=== PATIENT | female | born 1980 | race Caucasian/White ===

== ENCOUNTER 2016-05-07 20:58 | Emergency (ER) | payer SELFPAY ==
[2016-05-07] MEDS ORDERED: HYDROcodone/Acetaminophen 10/325 mg Tablet ONE (21:29)
[2016-05-07] MEDS ORDERED: Diazepam 5 MG TAB ONE (21:29)
[2016-05-07] MEDS ORDERED: Dexamethasone 4 MG TAB ONE (21:30)
[2016-05-07] MEDS ORDERED: Gabapentin 100 MG CAP ONE (21:30)
--- NOTE | 2016-05-07 21:47 | ERRECORD ---
[facility] EMERGENCY RECORD HPI BACK (21:31 ABUS) CHIEF COMPLAINT: Patient presents for evaluation of pain, to the left upper back. HISTORIAN: History provided by patient, 36 yr old Fhere with left shoulder pain in the context of doing extra physical labor. She has had a known "pinched nerve" and now its worsened. Describes the pain as coming from the left cervical spine area and down to the shoulder and shoulder blade. Has motor movement. denies any F/N/V, numbness. MECHANISM OF INJURY: Mechanism of injury:, Physical labor, No alcohol use associated with this incident, No drug use associated with this incident, No domestic violence associated with this incident, Work related. LOCATION: Symptoms are localized to the back, to cervical spine. QUALITY: Pain is dull in nature, described as aching. SEVERITY: Currently symptoms are moderate. TIME COURSE: Sudden onset of symptoms, First recent visit for this complaint, There has been no change in the patient's symptoms over time. ASSOCIATED WITH: No associated abdominal pain, No associated bladder incontinence, No associated bowel incontinence, No associated dysuria, No associated fever, Associated with radiation of pain, No associated sciatica. EXACERBATED BY: Patient's condition exacerbated by movement. RELIEVED BY: Patient's condition relieved by nothing. ROS (21:34 ABUS) CONSTITUTIONAL: Negative constitutional review of systems, Historian denies chills, denies fever. CARDIOVASCULAR: Negative cardiovascular review of systems, Historian denies chest pain, denies palpitations. RESPIRATORY: Negative respiratory review of systems, Historian denies cough, denies shortness of breath. GI: Negative gastrointestinal review of systems, Historian denies abdominal pain, denies constipation, denies diarrhea, denies nausea, denies vomiting. GENITOURINARY FEMALE: Negative genitourinary review of systems, Historian denies dysuria, denies frequency. MUSCULOSKELETAL: Historian reports back pain, denies deformity, denies fall, denies injury, reports myalgias, reports spasms. SKIN: Negative skin review of systems, Historian denies rash, denies skin changes. NEUROLOGIC: Negative neurologic review of systems, Historian denies headache. HEMO/LYMPHATIC: Normal hematologic/lymphatic system review, Historian denies abnormal blood clotting. PAST MEDICAL HISTORY (21:11 LPOL) MEDICAL HISTORY: Past medical history includes history of &a-1R&a+25V*p+0X*b1485U*c202B*c15G*c2P*p-0X&a-25V&a+1R Name: Marisa Link : 1980 F36 MedRec: [id number] AcctNum: [id number] Prepared: Adelina May 07, 2016 22:14 by Interface Page 1 of 4 pMD [facility] EMERGENCY RECORD hypertension, Flu vaccine not up to date, Tetanus immunization up to date, Pneumococcal vaccine not up to date, No past medical history, Flu vaccine not up to date,. FEMALE SURGICAL HISTORY: , Right leg surgery s/p fx 2012. PSYCHIATRIC HISTORY: No previous psychiatric history. SOCIAL HISTORY: Patient drinks socially, rarely, Patient denies drug use, Patient currently uses tobacco, smokes cigarettes, Lives at home, with family, Patient is a former drug user, abused marijuana, , Patient has smoked for 20 years, Patient smokes 1 pack per day, Lives at home, with family, Patient has pets. KNOWN ALLERGIES ALLERGIES: (Unconfirmed) FOOD ALLERGIES: (Unconfirmed) LATEX ALLERGY? (Unconfirmed) NKDA No Known Allergies (Unconfirmed) CURRENT MEDICATIONS No recorded medications VITAL SIGNS VITAL SIGNS: BP: 132/97, Pulse: 102, Resp: 18, Temp: 97.2 (Tympanic), O2 sat: 97 on Room Air, Time: 05/07/2016 21:07. (21:07 LPOL) Pulse: 88, Resp: 17, O2 sat: 100 on Room Air, Time: 05/07/2016 21:12. (21:12 LPOL) BP: 141/93, Pulse: 87, Resp: 20, O2 sat: 96 on ra, Time: 05/07/2016 22:02. (22:02 LPOL) PHYSICAL EXAM (21:34 ABUS) CONSTITUTIONAL: Vital Signs Reviewed, Patient afebrile, Pulse normal, Blood pressure normal, Patient appears non toxic, Patient appears, in severe pain distress, Patient alert and oriented to person, place and time. HEAD: Head exam normal. NECK: Neck exam normal, Neck exam included findings of normal range of motion, Trachea midline, no meningeal signs, no cervical adenopathy, no tenderness. RESPIRATORY CHEST: Respiratory and chest exam normal, Respiratory exam included findings of no respiratory distress, Breath sounds clear. CARDIOVASCULAR: Cardiovascular assessment normal, Cardiovascular exam included findings of heart rate regular rate and rhythm, Heart sounds normal. ABDOMEN FEMALE: Abdominal exam included findings of abdomen nontender, Bowel sounds normal, no distension, no mass, no pulsatile masses, no peritoneal signs, no rigidity, no guarding, no rebound, Rovsing's sign absent. &a-1R&a+25V*p+0X*n1507I*c202B*c15G*c2P*p-0X&a-25V&a+1R Name: Marisa Link : 1980 F36 MedRec: [id number] AcctNum: [id number] Prepared: Adelina May 07, 2016 22:14 by Interface Page 2 of 4 pMD [facility] EMERGENCY RECORD BACK: Back exam normal, Back exam included findings of normal inspection, range of motion normal, no tenderness. NEURO: Neuro exam normal, Neuro exam findings include patient oriented to person, place and time, Speech normal, Gait normal. SKIN: Skin exam normal, Skin exam included findings of skin warm, dry, and normal in color, no rash. MEDICATION ADMINISTRATION SUMMARY Drug Name: dexamethasone, Dose Ordered: 4 mg, Route: Oral, Status: Given, Time: 21:33 05/07/2016, Drug Name: HYDROcodone-acetaminophen, Dose Ordered: 10/325 tab(s), Route: Oral, Status: Given, Time: 21:33 05/07/2016, Drug Name: diazepam oral, Dose Ordered: 5 mg, Route: Oral, Status: Given, Time: 21:33 05/07/2016, Drug Name: gabapentin, Dose Ordered: 100 mg, Route: Oral, Status: Given, Time: 21:32 05/07/2016, Detailed record available in Medication Service section. DOCTOR NOTES (21:35 ABUS) TEXT: 36 yr old Fhere with left shoulder pain in the context of doing extra physical labor. She has had a known "pinched nerve" and now its worsened. Exam: left upper shoulder pain, no deformity, no redness, no fever, no motor or sensory deficits. DDX: Muscle strain, Muscle Spasm, Ligamentous Injury, Contusion, Soft Tissue Injury, Arthritis, Degenerative Joint Disease, Spinal Stenosis, Disk Herniation PLAN: Analgesics, Muscle Relaxants. Final Dispo: Home with follow up and return precautions. Level of Complexity / Medical Decision Making: Low. PROBLEM LIST No recorded problems DIAGNOSIS (21:29 ABUS) FINAL: PRIMARY: RADICULOPATHY CERVICAL REGION, ADDITIONAL: OTHER MUSCLE SPASM. PRESCRIPTION (21:28 ABUS) Flexeril: TABLET : 10 mg : ORAL : Quantity: 10 Unit: mg Route: ORAL Schedule: every 8 hours PRN Dispense: 6 Unit: tab(s) May substitute. Refills: No Refills . NOTES: No Refills. acetaminophen-codeine: TABLET : 300 mg-30 mg : ORAL : Quantity: 1 Unit: tab(s) Route: ORAL Schedule: every 6 hours PRN Dispense: 6 Unit: tab(s) May substitute. Refills: No Refills . NOTES: ^s=No Refills &a-1R&a+25V*p+0X*f9723I*c202B*c15G*c2P*p-0X&a-25V&a+1R Name: Marisa Link : 1980 F36 MedRec: [id number] AcctNum: [id number] Prepared: FriMay 07, 2016 22:14 by Interface Page 3 of 4 pMD [facility] EMERGENCY RECORD No Refills. DISPOSITION PATIENT: Disposition Type: Discharge, Disposition: *Discharge Home, Condition: Good. (21:29 ABUS) Patient left the department. (22:05 LPOL) Mancini: ABUS=MD Laurence, Jhonathan LPOL=LAINA Denney, Luna &a-1R&a+25V*p+0X*t9534V*c202B*c15G*c2P*p-0X&a-25V&a+1R Name: Marisa Link : 1980 F36 MedRec: [id number] AcctNum: [id number] Prepared: FriMay 07, 2016 22:14 by Interface Page 4 of 4 pMD [facility]
--- NOTE | 2016-05-07 21:53 | PICIS ---
[facility] EMERGENCY RECORD TRIAGE (21:09 LPOL) TRIAGE NOTES: Chest pain, left back pain x 1.5 hrs. (21:09 LPOL) PATIENT: NAME: Marisa Link, AGE: 36, GENDER: female, : Fri1980, TIME OF GREET: FriMay 07, 2016 20:59, PREFERRED LANGUAGE: Frisian, ETHNICITY: Not or , FALL RISK: NO, ECODE BILLING MAP: [facility], SSN: [id number], Zip Code: [address], PHONE: , , , PERSON ID: [id number], PCP: Ave RODRIGEZ KERRY. (21:09 LPOL) KG WEIGHT: 90.7 (est.). (21:11 LPOL) COMPLAINT: NECK, CHEST, AND BACK PAIN. (21:09 LPOL) ADMISSION: URGENCY: 4 Non Urgent, ADMISSION SOURCE: Home, TRANSPORT: Walk-in, BED: TRIAGE. (21:09 LPOL) SIRS SCORING: Heart Rate 55-109 (0), Temp range 96.8-101.1 (0), respiratory rate 12-24 (0), Mental Status altered: no (0). (21:11 LPOL) TRIAGE SCREENING: Patient denies suicidal ideation, Patient denies presence of domestic violence. (21:11 LPOL) TREATMENTS IN PROGRESS: Treatments given Prehospital: None. (21:11 LPOL) PROVIDERS: TRIAGE NURSE: Luna Denney RN. (21:09 LPOL) VITAL SIGNS: BP 132/97, Pulse 102, Resp 18, Temp 97.2, (Tympanic), O2 Sat 97, on Room Air, Time 05/07/2016 21:07. (21:07 LPOL) PREVIOUS VISIT ALLERGIES: NKDA. (21:09 LPOL) NKDA. (21:11 LPOL) KNOWN ALLERGIES ALLERGIES: (Unconfirmed) FOOD ALLERGIES: (Unconfirmed) LATEX ALLERGY? (Unconfirmed) NKDA No Known Allergies (Unconfirmed) CURRENT MEDICATIONS No recorded medications VITAL SIGNS VITAL SIGNS: BP: 132/97, Pulse: 102, Resp: 18, Temp: 97.2 (Tympanic), O2 sat: 97 on Room Air, Time: 05/07/2016 21:07. (21:07 LPOL) Pulse: 88, Resp: 17, O2 sat: 100 on Room Air, Time: 05/07/2016 21:12. (21:12 LPOL) BP: 141/93, Pulse: 87, Resp: 20, O2 sat: 96 on ra, Time: 05/07/2016 22:02. (22:02 LPOL) NURSING ASSESSMENT: HEAD-TO-TOE (21:11 LPOL) CONSTITUTIONAL: Gait steady, History obtained from patient, Patient appears, uncomfortable, Patient alert, Oriented to person, place and time, Skin warm, Skin dry, Skin normal in color, &a-1R&a+25V*p+0X*v6813V*c202B*c15G*c2P*p-0X&a-25V&a+1R Name: Marisa Link : 1980 F36 MedRec: [id number] AcctNum: [id number] Prepared: Adelina May 07, 2016 22:14 by Interface Page 1 of 7 pMD [facility] EMERGENCY RECORD Mucous membranes pink, Mucous membranes moist, Patient is well-groomed. PAIN: chest, neck, upper back. NEURO: GCS:, Eye opening: (4) - Spontaneous, Verbal: (5) - Oriented/conversive, Motor: (6) - Obeys commands/Spontaneous, GCS Total: 15. RESPIRATORY/CHEST: Breath sounds clear, Respiratory assessment findings include respiratory effort easy, Respirations regular, Conversing normally, Neck and chest exam findings include trachea midline, Chest expansion equal, Chest movement symmetrical. CARDIOVASCULAR: Cardiovascular assessment findings include heart rate normal, Heart rhythm normal sinus. NURSING PROCEDURE: DISCHARGE NOTE (22:02 LPOL) DISCHARGE: Patient discharged to home, ambulating without assistance, friend driving, accompanied by //partner, Summary of Care printed/ provided, Patient requested and was provided an electronic copy of Discharge Instructions, Transition record given to patient, Discharge instructions given to patient, Simple or moderate discharge teaching performed, by grace, Prescriptions given and instructions on side effects given, Name of prescription(s) given: tylenol#3, flexeril, Medication reconciliation form given, Above person(s) verbalized understanding of discharge instructions and follow-up care, Patient treated and evaluated by physician. BELONGINGS: Belongings and valuables with patient upon arrival to the Emergency Department include:, Belongings remain with patient, Valuables remain with patient. VITAL SIGNS: BP: 141, / 93, Pulse: 87, Resp: 20, O2 sat: 96, on: ra. NURSING PROCEDURE: EKG CHART (21:37 LPOL) PATIENT IDENTIFIER: Patient's identity verified by patient stating name, Patient's identity verified by patient stating date, Patient's identity verified by family member. EKG: EKG indicated for complaint of chest pain, 12 lead EKG performed on the left chest, done by Julia MARINA, first EKG. FOLLOW-UP: After procedure, EKG for interpretation given to Dr. Dang. SAFETY: Side rails up. ORDER DETAILS Order Name: EKG 12 Lead in Emergency Room, Status: Active, Time: 22:04 05/07/2016, User: LP, - Ordered for: MD Laurence, Jhonathan, - Entered by: LAINA Denney Loretta - Adelina May 07, 2016 22:04, - Quantity: 1. MEDICATION ADMINISTRATION SUMMARY &a-1R&a+25V*p+0X*e9762D*c202B*c15G*c2P*p-0X&a-25V&a+1R Name: Marisa Link : 1980 F36 MedRec: [id number] AcctNum: [id number] Prepared: Adelina May 07, 2016 22:14 by Interface Page 2 of 7 pMD [facility] EMERGENCY RECORD Drug Name: dexamethasone, Dose Ordered: 4 mg, Route: Oral, Status: Given, Time: 21:33 05/07/2016, Drug Name: HYDROcodone-acetaminophen, Dose Ordered: 10/325 tab(s), Route: Oral, Status: Given, Time: 21:33 05/07/2016, Drug Name: diazepam oral, Dose Ordered: 5 mg, Route: Oral, Status: Given, Time: 21:33 05/07/2016, Drug Name: gabapentin, Dose Ordered: 100 mg, Route: Oral, Status: Given, Time: 21:32 05/07/2016, Detailed record available in Medication Service section. MEDICATION SERVICE dexamethasone: Order: dexamethasone - Dose: 4 mg : Oral Schedule: Now Ordered by: Jhonathan Dang MD Entered by: Jhonathan Dang MD FriMay 07, 2016 21:25 , Acknowledged by: Luna Denney RN FriMay 07, 2016 21:26 Documented as given by: Luna Denney RN FriMay 07, 2016 21:33 Patient, Medication, Dose, Route and Time verified prior to administration. Amount given: 4 mg, Site: Medication administered P.O., Patient appears Awake and alert- acceptable, Correct patient, time, route, dose and medication confirmed prior to administration, Patient advised of actions and side-effects prior to administration, Allergies confirmed and medications reviewed prior to administration. : Follow Up : Response assessment performed, No signs or symptoms of allergic reaction noted, Decreased pain. (22:01 LPOL) diazepam oral: Order: diazepam oral (diazepam) - Dose: 5 mg : Oral Schedule: Now Ordered by: Jhonathan aDng MD Entered by: Jhonathan Dang MD FriMay 07, 2016 21:26 , Acknowledged by: Luna Denney RN FriMay 07, 2016 21:27 Documented as given by: Luna Denney RN FriMay 07, 2016 21:33 Patient, Medication, Dose, Route and Time verified prior to administration. Amount given: 5 mg, Site: Medication administered P.O., Patient appears Awake and alert- acceptable, Correct patient, time, route, dose and medication confirmed prior to administration, Patient advised of actions and side-effects prior to administration, Allergies confirmed and medications reviewed prior to administration. : Follow Up : Response assessment performed, No signs or symptoms of allergic reaction noted, Decreased pain. (22:02 LPOL) gabapentin: Order: gabapentin - Dose: 100 mg : Oral Schedule: Now Ordered by: Jhonathan Dang MD Entered by: Jhonathan Dang MD FriMay 07, 2016 21:27 , Acknowledged by: Luna Denney RN FriMay 07, 2016 21:28 &a-1R&a+25V*p+0X*w5110R*c202B*c15G*c2P*p-0X&a-25V&a+1R Name: Marisa Link : 1980 F36 MedRec: [id number] AcctNum: [id number] Prepared: FriMay 07, 2016 22:14 by Interface Page 3 of 7 pMD [facility] EMERGENCY RECORD Documented as given by: Luna Denney RN May 07, 2016 21:32 Patient, Medication, Dose, Route and Time verified prior to administration. Amount given: 100 mg, Site: Medication administered P.O., Patient appears Awake and alert- acceptable, Correct patient, time, route, dose and medication confirmed prior to administration, Patient advised of actions and side-effects prior to administration, Allergies confirmed and medications reviewed prior to administration. : Follow Up : Response assessment performed, No signs or symptoms of allergic reaction noted, Decreased pain. (22:02 LPOL) HYDROcodone-acetaminophen: Order: HYDROcodone-acetaminophen (hydrocodone bitartrate/acetaminophen) - Dose: 10/325 tab(s) : Oral Schedule: Now Ordered by: Jhonathan Dang MD Entered by: Jhonathan Dang MD michael May 07, 2016 21:26 , Acknowledged by: Luna Denney RN May 07, 2016 21:26 Documented as given by: Luna Denney RN May 07, 2016 21:33 Patient, Medication, Dose, Route and Time verified prior to administration. Amount given: 1 tab, Site: Medication administered P.O., Patient appears Awake and alert- acceptable, Correct patient, time, route, dose and medication confirmed prior to administration, Patient advised of actions and side-effects prior to administration, Allergies confirmed and medications reviewed prior to administration. : Follow Up : Response assessment performed, No signs or symptoms of allergic reaction noted, Decreased pain. (22:02 LPOL) HPI BACK (21:31 ABUS) CHIEF COMPLAINT: Patient presents for evaluation of pain, to the left upper back. HISTORIAN: History provided by patient, 36 yr old Fhere with left shoulder pain in the context of doing extra physical labor. She has had a known "pinched nerve" and now its worsened. Describes the pain as coming from the left cervical spine area and down to the shoulder and shoulder blade. Has motor movement. denies any F/N/V, numbness. MECHANISM OF INJURY: Mechanism of injury:, Physical labor, No alcohol use associated with this incident, No drug use associated with this incident, No domestic violence associated with this incident, Work related. LOCATION: Symptoms are localized to the back, to cervical spine. QUALITY: Pain is dull in nature, described as aching. SEVERITY: Currently symptoms are moderate. TIME COURSE: Sudden onset of symptoms, First recent visit for this complaint, There has been no change in the patient's symptoms over time. ASSOCIATED WITH: No associated abdominal pain, No associated bladder incontinence, No associated bowel &a-1R&a+25V*p+0X*r2786A*c202B*c15G*c2P*p-0X&a-25V&a+1R Name: Marisa Link : 1980 F36 MedRec: [id number] AcctNum: [id number] Prepared: Adelina May 07, 2016 22:14 by Interface Page 4 of 7 pMD [facility] EMERGENCY RECORD incontinence, No associated dysuria, No associated fever, Associated with radiation of pain, No associated sciatica. EXACERBATED BY: Patient's condition exacerbated by movement. RELIEVED BY: Patient's condition relieved by nothing. ROS (21:34 ABUS) CONSTITUTIONAL: Negative constitutional review of systems, Historian denies chills, denies fever. CARDIOVASCULAR: Negative cardiovascular review of systems, Historian denies chest pain, denies palpitations. RESPIRATORY: Negative respiratory review of systems, Historian denies cough, denies shortness of breath. GI: Negative gastrointestinal review of systems, Historian denies abdominal pain, denies constipation, denies diarrhea, denies nausea, denies vomiting. GENITOURINARY FEMALE: Negative genitourinary review of systems, Historian denies dysuria, denies frequency. MUSCULOSKELETAL: Historian reports back pain, denies deformity, denies fall, denies injury, reports myalgias, reports spasms. SKIN: Negative skin review of systems, Historian denies rash, denies skin changes. NEUROLOGIC: Negative neurologic review of systems, Historian denies headache. HEMO/LYMPHATIC: Normal hematologic/lymphatic system review, Historian denies abnormal blood clotting. PAST MEDICAL HISTORY (21:11 LPOL) MEDICAL HISTORY: Past medical history includes history of hypertension, Flu vaccine not up to date, Tetanus immunization up to date, Pneumococcal vaccine not up to date, No past medical history, Flu vaccine not up to date,. FEMALE SURGICAL HISTORY: , Right leg surgery s/p fx 2012. PSYCHIATRIC HISTORY: No previous psychiatric history. SOCIAL HISTORY: Patient drinks socially, rarely, Patient denies drug use, Patient currently uses tobacco, smokes cigarettes, Lives at home, with family, Patient is a former drug user, abused marijuana, , Patient has smoked for 20 years, Patient smokes 1 pack per day, Lives at home, with family, Patient has pets. PHYSICAL EXAM (21:34 ABUS) CONSTITUTIONAL: Vital Signs Reviewed, Patient afebrile, Pulse normal, Blood pressure normal, Patient appears non toxic, Patient appears, in severe pain distress, Patient alert and oriented to person, place and time. HEAD: Head exam normal. NECK: Neck exam normal, Neck exam included findings of normal range of motion, Trachea midline, no meningeal signs, no cervical &a-1R&a+25V*p+0X*f2979B*c202B*c15G*c2P*p-0X&a-25V&a+1R Name: Marisa Link : 1980 F36 MedRec: [id number] AcctNum: [id number] Prepared: FriMay 07, 2016 22:14 by Interface Page 5 of 7 pMD [facility] EMERGENCY RECORD adenopathy, no tenderness. RESPIRATORY CHEST: Respiratory and chest exam normal, Respiratory exam included findings of no respiratory distress, Breath sounds clear. CARDIOVASCULAR: Cardiovascular assessment normal, Cardiovascular exam included findings of heart rate regular rate and rhythm, Heart sounds normal. ABDOMEN FEMALE: Abdominal exam included findings of abdomen nontender, Bowel sounds normal, no distension, no mass, no pulsatile masses, no peritoneal signs, no rigidity, no guarding, no rebound, Rovsing's sign absent. BACK: Back exam normal, Back exam included findings of normal inspection, range of motion normal, no tenderness. NEURO: Neuro exam normal, Neuro exam findings include patient oriented to person, place and time, Speech normal, Gait normal. SKIN: Skin exam normal, Skin exam included findings of skin warm, dry, and normal in color, no rash. EVENTS TRANSFER: Triage to Emergency Triage. (FriMay 07, 2016 21:09 LPOL) Emergency Triage to Main ED -01. (21:09 LPOL) Removed from Emergency Main ED -01. (22:05 LPOL) DOCTOR NOTES (21:35 ABUS) TEXT: 36 yr old Fhere with left shoulder pain in the context of doing extra physical labor. She has had a known "pinched nerve" and now its worsened. Exam: left upper shoulder pain, no deformity, no redness, no fever, no motor or sensory deficits. DDX: Muscle strain, Muscle Spasm, Ligamentous Injury, Contusion, Soft Tissue Injury, Arthritis, Degenerative Joint Disease, Spinal Stenosis, Disk Herniation PLAN: Analgesics, Muscle Relaxants. Final Dispo: Home with follow up and return precautions. Level of Complexity / Medical Decision Making: Low. PROBLEM LIST No recorded problems DIAGNOSIS (21:29 ABUS) FINAL: PRIMARY: RADICULOPATHY CERVICAL REGION, ADDITIONAL: OTHER MUSCLE SPASM. DISPOSITION PATIENT: Disposition Type: Discharge, Disposition: *Discharge Home, Condition: Good. (21:29 ABUS) Patient left the department. (22:05 LPOL) INSTRUCTION (21:30 ABUS) &a-1R&a+25V*p+0X*w7172E*c202B*c15G*c2P*p-0X&a-25V&a+1R Name: Marisa Link : 1980 F36 MedRec: [id number] AcctNum: [id number] Prepared: Adelina May 07, 2016 22:14 by Interface Page 6 of 7 pMD [facility] EMERGENCY RECORD DISCHARGE: RADICULOPATHY, CERVICAL, MUSCLE STRAIN CERVICAL. FOLLOWUP: Ave RODRIGEZ, JACINTA, Obstetrics and Gynecology, [address] [place] [id number], [phone], Follow up with Primary Care Physician in 1-2 days. SPECIAL: Please keep any upcoming appointments with your primary doctor or call the referral provided to you today to establish a follow up evaluation or ongoing medical care. Please come back if you start to have fever, vomiting, numbness, motor weakness, or any symptoms that concern you. PRESCRIPTION (21:28 ABUS) Flexeril: TABLET : 10 mg : ORAL : Quantity: 10 Unit: mg Route: ORAL Schedule: every 8 hours PRN Dispense: 6 Unit: tab(s) May substitute. Refills: No Refills . NOTES: No Refills. acetaminophen-codeine: TABLET : 300 mg-30 mg : ORAL : Quantity: 1 Unit: tab(s) Route: ORAL Schedule: every 6 hours PRN Dispense: 6 Unit: tab(s) May substitute. Refills: No Refills . NOTES: ^s=No Refills No Refills. IMAGING *EKG: Image captured from scanner. (21:36 LPOL) *DISCHARGE INSTRUCTIONS RECEIPT: Image captured from scanner. (22:04 LPOL) Page 2 added. Image captured from scanner. (22:06 LPOL) *SUPPLY CHARGE SHEET: Image captured from scanner. (22:06 LPOL) ADMIN (21:37 ABUS) DIGITAL SIGNATURE: MD Dang Anthony. Mancini: ABUS=MD Dang Anthony LPOL=LAINA Denney, Luna &a-1R&a+25V*p+0X*g4981N*c202B*c15G*c2P*p-0X&a-25V&a+1R Name: Marisa Link : 1980 F36 MedRec: [id number] AcctNum: [id number] Prepared: Adelina May 07, 2016 22:14 by Interface Page 7 of 7 pMD [facility]
== END 2016-05-07 22:00 | disposition home or self-care (01) ==
LOC: MADERS 20:58
DX: M54.12 Radiculopathy, cervical region (principal); M62.838 Other muscle spasm; I10 Essential (primary) hypertension; F17.210 Nicotine dependence, cigarettes, uncomplicated
CPT/HCPCS: 93005; J8540

== ENCOUNTER 2018-07-31 22:16 | Emergency (ER) | payer SELFPAY | END 2018-07-31 23:44 | disposition home or self-care (01) | LOC: MADERS 22:16 | DX: H66.92 Otitis media, unspecified, left ear (principal); I10 Essential (primary) hypertension; F17.210 Nicotine dependence, cigarettes, uncomplicated | CPT/HCPCS: 99283 ==

== ENCOUNTER 2019-06-10 11:39 | Emergency (ER) | payer OTHER, SELFPAY ==
[~2019-06-10 11:39] MED LIST: Nitroglycerin 0.4 MG TAB 1 EACH ONE
[2019-06-10] MEDS ORDERED: Nitroglycerin 0.4 MG TAB 1 EACH ONE (11:57)
[2019-06-10] MEDS ORDERED: Aspirin Chewable 81 MG TAB ONE (11:59)
[2019-06-10 12:09] LABS: #Basophils 0.1 thou/uL (0.0-0.2); #Eosinphils 0.1 thou/uL (0.0-0.7); #Lymphocytes 1.9 thou/uL (1.20-3.40); #Monocytes 0.7 thou/uL (0.11-0.59); #Neutrophils 6.8 thou/uL (1.40-6.50); %Basophils 0.9 % (0.0-1.0); %Eosinophils 1.4 % (0.0-10.0); %Lymphocytes 19.9 % (21.0-51.0); %Monocytes 6.9 % (0.0-10.0); %Neutrophils 70.9 % (42.0-75.0); Mean Corpuscular Hemoglobin 30.8 pg (27.0-31.0); Mean Corpuscular Volume 96.2 fL (78.0-98.0); Mean Platelet Volume 10.6 fL (7.4-10.4); Platelet Count 231 thou/uL (130-400); RBC Distribution Width 10.9 % (11.5-14.5); White Blood Cell (WBC) Count 9.6 thou/uL (4.8-10.8)
[2019-06-10 12:22] LABS: ALT (SGPT) 20 U/L (8-55); AST (SGOT) 15 U/L (5-34); Albumin 4.1 g/dL (3.5-5.0); Alkaline Phosphatase 96 U/L (40-110); Anion Gap 16 mmol/L (10-20); BUN (Urea Nitrogen) 7 mg/dL (7.0-18.7); Bilirubin, Total 1.1 mg/dL (0.2-1.2); CK (CPK) 53 U/L (29-168); Calc. Creatinine Clearance 0 mL/min (70-130); Calcium 8.9 mg/dL (7.8-10.44); Carbon Dioxide 21 mmol/L (22-29); Chloride 108 mmol/L (98-107); Estimated GFR-MDRD Greater than 90; Globulin 2.9 g/dL (2.4-3.5); Glucose 110 mg/dL (70-105); Potassium 3.9 mmol/L (3.5-5.1); Sodium 141 mmol/L (136-145)
[2019-06-10 12:23] LABS: CKMB 1.4 ng/mL (0-6.6)
[2019-06-10] MEDS ORDERED: Metoprolol Tartrate 25 MG TAB ONE (13:13)
--- NOTE | 2019-06-10 13:30 | RAD ---
RADIOGRAPH CHEST 1 VIEW: Date: 06/10/2019 Time: 1224 hours HISTORY: 39-year-old female with chest pain. COMPARISON: None available. FINDINGS: Magnification of the cardia shadow. Prominent interstitial markings. No consolidation or pneumothorax . No effacement of lateral costophrenic angles. IMPRESSION: No compelling evidence of acute pulmonary disease. JN [] POS: [facility]
== END 2019-06-10 13:17 | disposition home or self-care (01) ==
LOC: MADERS 11:39
DX: I10 Essential (primary) hypertension (principal); R07.89 Other chest pain; F17.210 Nicotine dependence, cigarettes, uncomplicated
CPT/HCPCS: 71045; 80053; 82550; 82553; 84484; 85025; 85379; 93005

== ENCOUNTER 2019-06-14 10:29 | Emergency (ER) | payer OTHER, SELFPAY ==
[2019-06-14] MEDS ORDERED: Metoprolol Tartrate 50 MG TAB ONE (11:13)
[2019-06-14] MEDS ORDERED: Amlodipine 5 MG TAB ONE (11:13)
[2019-06-14] MEDS ORDERED: Ibuprofen 800 MG TAB ONE (11:20)
== END 2019-06-14 12:55 ==
LOC: MADERS 10:29
DX: I10 Essential (primary) hypertension (principal); R10.30 Lower abdominal pain, unspecified; F17.210 Nicotine dependence, cigarettes, uncomplicated; Z79.82 Long term (current) use of aspirin; Z79.899 Other long term (current) drug therapy
CPT/HCPCS: 99283

== ENCOUNTER 2020-10-29 16:34 | Emergency (ER) | payer OTHER ==
[2020-10-29 18:09] LABS: Hemoglobin 16.3 g/dL (12.0-16.0); Mean Corpuscular HGB CONC 32.2 g/dL (32.0-36.0); Mean Corpuscular Hemoglobin 31.6 pg (27.0-31.0); Mean Corpuscular Volume 98.2 fL (78.0-98.0); Mean Platelet Volume 10.7 fL (7.4-10.4); Platelet Count 262 thou/uL (130-400); RBC Distribution Width 11.1 % (11.5-14.5); Red Blood Cell (RBC) Count 5.15 mill/uL (4.20-5.40); White Blood Cell (WBC) Count 10.4 thou/uL (4.8-10.8)
[2020-10-29 18:19] LABS: ALT (SGPT) 31 U/L (8-55); AST (SGOT) 18 U/L (5-34); Albumin 4.1 g/dL (3.5-5.0); Alkaline Phosphatase 104 U/L (40-110); Anion Gap 15 mmol/L (10-20); BUN (Urea Nitrogen) 9 mg/dL (7.0-18.7); Bilirubin, Total 1.7 mg/dL (0.2-1.2); Calc. Creatinine Clearance 0 mL/min (70-130); Calcium 9.3 mg/dL (7.8-10.44); Carbon Dioxide 25 mmol/L (22-29); Chloride 105 mmol/L (98-107); Globulin 3.3 g/dL (2.4-3.5); Glucose 98 mg/dL (70-105); Potassium 3.5 mmol/L (3.5-5.1); Protein, Total 7.4 g/dL (6.0-8.3); Sodium 141 mmol/L (136-145)
[2020-10-29 18:27] LABS: Band 1 % (5-11); Lymphocytes 26 % (21-51); MDiff Complete? YES; Monocytes 4 % (0-10); Neutrophil 64 % (42-75); Platelet Morphology Comment Appears Adequate; RBC Morphology Normal; Reactive Lymphocytes 4 % (0-10)
[2020-10-29] MEDS ORDERED: HYDROcodone/Acetaminophen 5/325 mg Tablet ONE (18:35)
[2020-10-29] MEDS ORDERED: Metoclopramide HCl 10 MG/2 ML VIAL ONE (18:35)
[2020-10-29] MEDS ORDERED: Sodium Chloride 0.9% 50 ML ONE (18:35)
== END 2020-10-29 19:06 ==
LOC: MADERS 16:34
DX: I10 Essential (primary) hypertension (principal); R51.9 Headache, unspecified
CPT/HCPCS: 70450; 71045; 80053; 84484; 85025; 93005; 96365; J2765

== ENCOUNTER 2020-10-31 14:26 | Emergency (ER) | payer OTHER ==
[2020-10-31 15:34] LABS: Bilirubin Negative (Negative); Blood, Urine Negative (Negative); Clarity Clear (Clear); Glucose, Urine (Dipstick) 100 mg/dL (Negative); Ketone, Urine Negative (Negative); Leukocyte Negative (Negative); Nitrite Negative (Negative); Protein, Urine (Dipstick) Negative (Neg-Trace); Specific Gravity, Urine 1.025 (1.005-1.030); pH, Urine 6.5 (5.0-9.0)
[2020-10-31 15:46] LABS: Pregnancy Test - Urine (BHCG) Negative (Negative); Pregu Control Background? CLEAR/WHITE (CLR/WHITE); Pregu Control Bar Appear? YES (CONTROL BAR); Specific Gravity 1.025 (1.002-1.036)
[2020-10-31 16:12] LABS: Amphetamine Not Detected (NotDetected); Barbiturates Screen Not Detected (NotDetected); Benzodiazepine Screen Not Detected (NotDetected); Cocaine Metabolite Screen Not Detected (NotDetected); Medtox Control Line Valid? VALID (VALID); Methadone Not Detected (NotDetected); Methamphetamine Not Detected (NotDetected); Opiate Screen Not Detected (NotDetected); Oxycodone Screen Not Detected (NotDetected); Phencyclidine (PCP) Not Detected (NotDetected); THC/Cannabinoid Screen Not Detected (NotDetected); Tricyclic Screen Not Detected (NotDetected)
== END 2020-10-31 16:06 | disposition home or self-care (01) ==
LOC: MADERS 14:26
DX: I10 Essential (primary) hypertension (principal); N39.0 Urinary tract infection, site not specified; Z79.899 Other long term (current) drug therapy; Z79.82 Long term (current) use of aspirin
CPT/HCPCS: 80306; 81003; 81025; 87086; 99283